=== PATIENT | male | born 1950 | race Hispanic/Latino ===

== ENCOUNTER 2022-03-19 14:19 | Emergency (ER) | payer OTHER ==
[~2022-03-19] VITALS: Ht 160 cm; Wt 83.9 kg
[2022-03-19 15:38] LABS: APPEARANCE,URINE CLEAR (CLEAR); BILIRUBIN,URINE NEGATIVE (NEGATIVE); COLOR,URINE LIGHT-YELLOW (YELLOW); GLUCOSE, URINE (UA) NEGATIVE (NEGATIVE); KETONES,URINE NEGATIVE (NEGATIVE); LEUKOCYTE ESTERASE ,URINE NEGATIVE Leu/uL (NEGATIVE); NITRATE,URINE NEGATIVE (NEGATIVE); OCCULT BLOOD,URINE NEGATIVE (NEGATIVE); PROTEIN,URINE NEGATIVE (NEGATIVE); UROBILINOGEN,URINE 0.2 mg/dL (0.2-1.0)
[2022-03-19 15:39] LABS: MUCUS,URINE RARE LPF (None Seen); RBC,URINE 0-1 /HPF (0-1); SQUAMOUS EPITHELIAL CELL,UR RARE /HPF (0-2); WBC,URINE 0-1 /HPF (0-1)
[2022-03-19] MEDS ORDERED: ACET-66 PO (16:15)
[2022-03-19 16:28] VITALS: BP 154/72
== END 2022-03-19 16:46 | disposition home or self-care (01) ==
LOC: EDH 14:19
DX: G89.29 Other chronic pain (principal); M25.552 Pain in left hip; I10 Essential (primary) hypertension; Z96.642 Presence of left artificial hip joint; Z86.718 Personal history of other venous thrombosis and embolism; Z86.73 Personal history of transient ischemic attack (TIA), and cerebral infarction without residual deficits
CPT/HCPCS: 73502; 81001

== ENCOUNTER 2023-04-16 09:45 | Emergency (ER) | payer OTHER ==
[~2023-04-16] VITALS: Ht 160 cm; Wt 73.0 kg
[~2023-04-16 09:45] MED LIST: ACET-66 PO
[2023-04-16 09:59] VITALS: O2SAT 95
[2023-04-16] MEDS ORDERED: 0.9%NACL 1000ML 1,000 ML IV ONE (10:00)
[2023-04-16 10:02] LABS: BASOPHILS # (AUTO) 0.04 K/uL (0.00-0.20); BASOPHILS % (AUTO) 0.4 % (0.0-5.0); EOSINOPHILS # (AUTO) 0.03 K/uL (0.00-0.70); EOSINOPHILS % (AUTO) 0.3 % (0.0-8.0); HEMATOCRIT 40.6 % (42-54); IMMATURE GRANULOCYTE ABSOLUTE 0.05 K/uL (0-1); LYMPHOCYTES % (AUTO) 18.7 % (21.0-51.0); MEAN CORPUSCULAR HEMOGLOBIN 32.6 pg (27.0-33.0); MEAN CORPUSCULAR HGB CONC 33.3 g/dL (32.0-36.0); MEAN CORPUSCULAR VOLUME 98.1 fL (79-99); MONOCYTES # (AUTO) 0.5 K/uL (0.1-1.0); MONOCYTES % (AUTO) 4.3 % (3.0-13.0); NEUTROPHILS # (AUTO) 8.1 K/uL (1.8-7.7); NEUTROPHILS % (AUTO) 75.8 % (40.0-77.0); PLATELET COUNT (AUTO) 232 K/uL (130-400); RED BLOOD CELL COUNT(AUTO) 4.14 MIL/uL (4.50-6.20); RED CELL DISTRIBUTION WIDTH 12.1 % (11.0-15.5); WHITE BLOOD COUNT (AUTO) 10.7 K/uL (4.8-10.8)
[2023-04-16 10:25] LABS: ALBUMIN 3.6 g/dL (3.5-5.0); BILIRUBIN,TOTAL 1.2 mg/dL (0.2-1.0); CREATININE 1.1 mg/dL (0.5-1.5); MAGNESIUM 2.2 mg/dL (1.80-2.40); POTASSIUM 4.5 mmol/L (3.5-5.1); TOTAL PROTEIN, SERUM 6.4 g/dL (6.0-8.3)
[2023-04-16 10:29] LABS: SARS-CoV-2, RNA, NAAT NEGATIVE SARS CoV-2 (NEGATIVE)
[2023-04-16 10:39] LABS: INFLUENZA TYPE A Negative For Type A (NEGATIVE); INFLUENZA TYPE B Negative For Type B (NEGATIVE)
[2023-04-16] MEDS ORDERED: ACETAMINOPHEN 500 MG TABLET ONE (11:02)
[2023-04-16] MEDS ORDERED: ACETAMINOPHEN 500 MG TABLET PO ONE (11:30)
[2023-04-16 12:29] LABS: APPEARANCE,URINE CLEAR (CLEAR); BILIRUBIN,URINE NEGATIVE (NEGATIVE); COLOR,URINE YELLOW (YELLOW); GLUCOSE, URINE (UA) NEGATIVE (NEGATIVE); KETONES,URINE NEGATIVE (NEGATIVE); LEUKOCYTE ESTERASE ,URINE NEGATIVE Leu/uL (NEGATIVE); NITRATE,URINE NEGATIVE (NEGATIVE); OCCULT BLOOD,URINE NEGATIVE (NEGATIVE); PH,URINE 5.5 (5.0-8.0); PROTEIN,URINE NEGATIVE (NEGATIVE); UROBILINOGEN,URINE 0.2 mg/dL (0.2-1.0)
[2023-04-16 12:34] LABS: ADD UA MICROSCOPIC NO
[2023-04-16 15:39] VITALS: BP 105/57; PULSE 62; RESP 18
== END 2023-04-16 15:38 | disposition home or self-care (01) ==
LOC: EDH 09:45
DX: R53.1 Weakness (principal); R61 Generalized hyperhidrosis; R11.0 Nausea; I10 Essential (primary) hypertension; Z20.822 Contact with and (suspected) exposure to COVID-19; Z98.890 Other specified postprocedural states
CPT/HCPCS: 99285; 96360; 70450; 71045; 87635; 82550; 83735; 84484; 80053; 82140; 83690; 85025; 87040 ×2; 87804 ×2; 82948; 83605; 81003; 36415; 93005; J7030